=== PATIENT | female | born 1980 | race Caucasian/White ===

== ENCOUNTER → 2021-11-03 | Outpatient (CLI) | payer OTHER ==
[~2021-11-03] MED LIST: BACTRIM DS TAB1 EACH PO; CLARITIN10 MG PO; COLACE100 MG PO; ESTARYLLA 0.251 EACH PO; HYDROCODON-ACE1 EAC4 PO; IBU600 MG PO; OMEPRAZOLE40 MG PO
[2021-11-03 14:42] LABS: HEMOGLOBIN 12.8 gm/dl (12.3-15.3); RED BLOOD COUNT 4.21 M/UL (4.00-5.10); WHITE BLOOD COUNT 4.8 K/UL (4.5-11.0)
== END ==
LOC: OPSV2 10:00
PROVIDERS: Obstetrics & Gynecology
DX: Z01.818 Encounter for other preprocedural examination (principal); D18.00 Hemangioma unspecified site
CPT/HCPCS: 36415; 81001; 85025; 93005

== ENCOUNTER → 2021-11-05 | Day surgery (SDC) | payer OTHER | END | disposition home or self-care (01) | LOC: OR 05:26 | DX: N75.0 Cyst of Bartholin's gland (principal); D18.09 Hemangioma of other sites | CPT/HCPCS: 36415; 84702; 87070; 87205; J1100; J1885; J2001; J2250; J2405; J2704; J2795; J3010 ==

== ENCOUNTER 2021-11-30 15:06 | Emergency (ER) | payer OTHER ==
[2021-11-30] MEDS ORDERED: CYCLOBENZAPRINE10 MG PO (21:16)
[2021-11-30] MEDS ORDERED: IBU800 MG PO (21:16)
== END 2021-11-30 21:28 | disposition home or self-care (01) ==
LOC: ER1 15:06
DX: S33.9XXA Sprain of unspecified parts of lumbar spine and pelvis, initial encounter (principal); K21.9 Gastro-esophageal reflux disease without esophagitis; X58.XXXA Exposure to other specified factors, initial encounter
CPT/HCPCS: 72131; 96372; 99284; J1030